=== PATIENT | female | born 1940 | race Caucasian/White ===

== ENCOUNTER 2016-12-29 10:56 | Emergency (ER) | payer OTHER ==
[~2016-12-29] VITALS: Ht 160 cm; Wt 85.0 kg
[2016-12-29 11:09] VITALS: BP 156/122; PULSE 91; RESP 18; TEMP 99.7; O2SAT 98
[2016-12-29] MEDS ORDERED: SERT25TA83 PO (11:50)
[2016-12-29] MEDS ORDERED: METF500T PO (11:50)
[2016-12-29] MEDS ORDERED: [UNRECOGNIZED DRUG - REMARK] (11:50)
[2016-12-29] MEDS ORDERED: CHOLMIS (11:50)
[2016-12-29] MEDS ORDERED: LISI-519 PO (11:50)
[2016-12-29] MEDS ORDERED: BENZ100 PO (11:58)
[2016-12-29] MEDS ORDERED: TYLETAB34 PO (11:58)
--- NOTE | 2016-12-29 12:03 | PD ---
HPI Chief Complaint: Respiratory Symptoms Time Seen by Provider: 11:51 Travel History International Travel<30 days: No Contact w/Intl Traveler<30days: No Traveled to known affect area: No History of Present Illness HPI This patient complains of cough and congestion and sore throat and runny nose. Whenever she coughs she has chest wall discomfort. She has a nebulizer at home. No wheezing. She quit smoking 30 years ago. Symptoms severity is moderate. PFSH Past Medical History Hx Anticoagulant Therapy: Yes (asa 81mg) Cardiovascular Problems: Yes (htn on meds but didnt take this am) COPD: Yes Diabetes: Yes (type 2) Patient Takes Glucophage: Yes Hypertension: Yes Respiratory: Yes (copd) Past Surgical History Surgical History: No Previous Surgery Social History Alcohol Use: No Tobacco Use: No Allergies-Medications (Allergen,Severity, Reaction): Coded Allergies: Penicillin (Verified Allergy, Mild, hives, 12/29/16) Reported Meds & Prescriptions Reported Meds & Active Scripts Active Tylenol-Codeine #3 (Acetaminophen-Codeine) 300-30 mg Tab 1 Tab PO Q6HR PRN Tessalon Perles (Benzonatate) 100 Mg Cap 200 Mg PO TID PRN Reported Metformin (Metformin HCl) 500 Mg Tab 500 Mg PO BIDPC With meals Sertraline (Sertraline HCl) 25 Mg Tab 25 Mg PO DAILY [fibroid] Cholesterol 1 Mis Mis Lisinopril 5 Mg Tab 5 Mg PO DAILY Review of Systems General / Constitutional: No: Fever HENT: No: Headaches Respiratory: Positive: Cough Gastrointestinal: No: Vomiting Physical Exam Narrative RESPIRATORY: Respiratory effort unlabored, no retractions or use of accessory muscles. Breath sounds are clear and symmetric. CARDIOVASCULAR: Regular rate and rhythm without murmur. Extremities showed no edema or varicosities. GASTROINTESTINAL: Abdomen soft, non-tender, nondistended. Positive bowel sounds. No hepato-splenomegaly, or palpable masses. No guarding. SKIN: Inspection shows no rash or ulcers. Palpation shows no induration or nodules. Data Data Last Documented VS Vital Signs Date Time Temp Pulse Resp B/P Pulse Ox O2 Delivery O2 Flow Rate FiO2 12/29/16 11:09 99.7 91 18 156/122 98 MDM Medical Decision Making Medical Screen Exam Complete: Yes Emergency Medical Condition: Yes Medical Record Reviewed: Yes Differential Diagnosis Bronchitis, COPD, pneumonia Narrative Course I have reviewed the patient's electronic medical record. Presentation here is consistent with an acute viral flu-type syndrome. No indication for antibiotics or chest x-ray Lungs are clear and she is not short of breath I prescribed her some Tessalon that she would like to try to suppress cough I wrote her some Tylenol 3 with codeine for her chest wall discomfort This is clearly noncardiac She has a nebulizer at home that she will use as needed Diagnosis Primary Impression: Flu syndrome Additional Instructions: The patient was advised to follow up with their physician and return if they worsen. Med/Other Pt SpecificInfo: Prescription(s) given Scripts Acetaminophen-Codeine (Tylenol-Codeine #3)300-30 mg Tab1 Tab PO Q6HR PRN (PAIN) #15 TAB Ref 0 Prov:Sameer Breen MD 12/29/16 Benzonatate (Tessalon Perles)100 Mg [id number] Mg PO TID PRN (COUGH) #20 CAP Ref 0 Prov:Sameer Breen MD 12/29/16 Disposition: 01 DISCHARGE HOME Condition: Stable Sameer Breen MD Dec 29, 2016 12:03
== END 2016-12-29 12:48 | disposition home or self-care (01) ==
LOC: PHED 10:56
DX: J11.1 Influenza due to unidentified influenza virus with other respiratory manifestations (principal); R05 Cough; R07.0 Pain in throat; R09.89 Other specified symptoms and signs involving the circulatory and respiratory systems; R07.89 Other chest pain; I10 Essential (primary) hypertension; E11.9 Type 2 diabetes mellitus without complications; Z79.82 Long term (current) use of aspirin; Z79.84 Long term (current) use of oral hypoglycemic drugs; Z86.79 Personal history of other diseases of the circulatory system; Z87.09 Personal history of other diseases of the respiratory system
CPT/HCPCS: 99283

== ENCOUNTER 2017-07-26 15:11 | Emergency (ER) | payer OTHER ==
[~2017-07-26] VITALS: Ht 162.6 cm; Wt 87.0 kg
[~2017-07-26 15:11] MED LIST: BENZ100 PO; CHOLMIS; LISI-519 PO; METF500T PO; SERT25TA83 PO; TYLETAB34 PO; [UNRECOGNIZED DRUG - REMARK]
[2017-07-26 15:18] VITALS: BP 171/74; PULSE 62; RESP 17; TEMP 98.2; O2SAT 97
[2017-07-26] MEDS ORDERED: LEVO137T2 PO (15:27)
[2017-07-26] MEDS ORDERED: ATOR20TA15 PO (15:27)
--- NOTE | 2017-07-26 15:29 | PD ---
HPI Chief Complaint: Fall Time Seen by Provider: 15:23 Travel History International Travel<30 days: No Contact w/Intl Traveler<30days: No Traveled to known affect area: No History of Present Illness HPI The patient was seen and examined in the presence of the nurse. This patient was standing on her first step going into her mobile home when she slipped because her shoes were wet. She landed on her left elbow. Complains of pain and decreased movement. Paramedics brought her in. He did not strike her head. No head or neck pain or chest or abdominal or back pain. She is ambulatory since the fall. Severity is moderate. Duration 2 hours. No alleviating factors PFSH Past Medical History Hx Anticoagulant Therapy: Yes (asa 81mg) Cardiovascular Problems: Yes (htn on meds but didnt take this am) COPD: Yes Diabetes: Yes (type 2) Patient Takes Glucophage: Yes (07/26/17 0900) Diminished Hearing: No Hypertension: Yes Respiratory: Yes (copd) ?: Not Past Surgical History Appendectomy: Yes Social History Alcohol Use: No Tobacco Use: No Substance Use: No Allergies-Medications (Allergen,Severity, Reaction): Coded Allergies: penicillin G (Unverified Allergy, Mild, hives, 06/30/17) Reported Meds & Prescriptions Reported Meds & Active Scripts Active Percocet (Oxycodone-Acetaminophen) 5-325 mg Tab 1 Tab PO Q6H PRN Reported Levothyroxine (Levothyroxine Sodium) 137 Mcg Tab 137 Mcg PO DAILY Atorvastatin (Atorvastatin Calcium) 20 Mg Tab 20 Mg PO HS Metformin (Metformin HCl) 500 Mg Tab 500 Mg PO BIDPC With meals Sertraline (Sertraline HCl) 25 Mg Tab 25 Mg PO DAILY [fibroid] Lisinopril 5 Mg Tab 5 Mg PO DAILY Review of Systems General / Constitutional: No: Fever Eyes: No: Visual changes HENT: No: Headaches Cardiovascular: No: Chest Pain or Discomfort Respiratory: No: Shortness of Breath Gastrointestinal: No: Abdominal Pain Genitourinary: No: Dysuria Musculoskeletal: Positive: Arthralgias, Limited ROM, Pain Skin: No Rash Neurologic: No: Weakness Psychiatric: No: Depression Endocrine: No: Polydipsia Hematologic/Lymphatic: No: Easy Bruising Physical Exam Narrative GENERAL: Well-nourished, well-developed patient in no apparent distress. SKIN: Focused skin assessment reveals no rash and nodules. Skin is Warm and dry. HEAD: Atraumatic. Normocephalic. EYES: Pupils equal and round. No scleral icterus. No injection or drainage. ENT: No nasal bleeding or discharge. Mucous membranes pink and moist. NECK: Trachea midline. No JVD. CARDIOVASCULAR: Regular rate and rhythm. No murmur appreciated. RESPIRATORY: No accessory muscle use. Clear to auscultation. Breath sounds equal bilaterally. GASTROINTESTINAL: Abdomen soft, non-tender, nondistended. Hepatic and splenic margins not palpable. MUSCULOSKELETAL: Some deformity at the left elbow joint. There is tenderness there. No open wound. Has normal pulse and sensation and cap refill. No clubbing. No cyanosis. No edema. NEUROLOGICAL: Awake and alert. No obvious cranial nerve deficits. Motor grossly within normal limits. Normal speech. PSYCHIATRIC: Appropriate mood and affect; insight and judgment normal. Data Data Last Documented VS Vital Signs Date Time Temp Pulse Resp B/P (MAP) Pulse Ox O2 Delivery O2 Flow Rate FiO2 07/26/17 15:41 96 Room Air 07/26/17 15:18 98.2 62 17 171/74 (106) Orders Orders Iv Access Insert/Monitor (07/26/17 15:29) Rail Director / Telemetry [email or web address] (07/26/17 15:29) Oxygen Administration (07/26/17 15:29) Oximetry (07/26/17 15:29) Propofol 200 Mg/20 Ml Inj (Diprivan 200 (07/26/17 15:30) Elbow, Limited (Ap&Lat) (07/26/17 ) Elbow, Limited (Ap&Lat) (07/26/17 ) Splint Or Brace Apply/Monitor (07/26/17 16:16) Propofol 200 Mg/20 Ml Inj (Diprivan 200 (07/26/17 17:15) Elbow, Limited (Ap&Lat) (07/26/17 ) MDM Medical Decision Making Medical Screen Exam Complete: Yes Emergency Medical Condition: Yes Medical Record Reviewed: Yes Differential Diagnosis Elbow dislocation, elbow fracture, contusion Narrative Course I have reviewed the patient's electronic medical record. I reviewed her left elbow x-rays. She has a fracture dislocation of the left elbow. Fracture is at the proximal radial head. Procedure note: I discussed the procedure at length with the patient. She signed written consent. We reviewed risks and benefits and alternatives. She has history of COPD and is nebulizer dependent so I was cautious with sedation. I placed her on oximetry and telemetry monitoring and gave HER-2 liters nasal cannula oxygen. She maintained saturations in the 97-98 range throughout the procedure. I gave her 50 mg IV Diprivan which achieved an excellent level of sedation I applied pressure to the back of the left olecranon while also applying distal traction to the forearm. I initially thought that this reduced it. I reviewed the post reduction x-ray which did not show resolution of the dislocation. At this point she was no longer sedated. I gave her a second dose of 50 g IV Diprivan and once again achieved good sedation. I repeated the maneuver applied more pressure to the olecranon and more distal traction to the forearm and this resulted in an audible clunk and change in position and reduction of the dislocation. Posterior long-arm splint was applied. I'm giving her extensive time to let the sedation wore off. She will be under continuous pulse oximetry and telemetry monitoring during this time. Bedside physician time is 20 minutes. I reviewed the second post reduction x-ray which showed good reduction of the dislocation. At this point she is awake and talking and I will continue to monitor for while but it some point in the near future she'll be stable for discharge. I wrote her medication for pain. She's got a sling and a splint and will follow with orthopedist. Diagnosis Primary Impression: Fracture dislocation of left elbow joint Qualified Codes: S42.402A - Unspecified fracture of lower end of left humerus , initial encounter for closed fracture Additional Instructions: Follow-up with orthopedist Wear sling and splint The patient was warned about potential sedation for the medications they will receive on prescription. Med/Other Pt SpecificInfo: Prescription(s) given Scripts Oxycodone-Acetaminophen (Percocet) 5-325 mg Tab 1 TAB PO Q6H Y for PAIN, #20 TAB 0 Refills Prov: Sameer Breen MD 07/26/17 Disposition: 01 DISCHARGE HOME Condition: Stable Sameer Breen MD Jul 26, 2017 15:29
[2017-07-26] MEDS ORDERED: PROPOFOL 200 MG/20 ML AMP IV ONE ×2 (15:30→17:15)
[2017-07-26 15:41] VITALS: O2SAT 96
--- NOTE | 2017-07-26 15:59 | RADRPT ---
EXAM DATE/TIME: 07/26/2017 15:42 [facility] COMPARISON: No previous studies available for comparison. INDICATIONS : Fall, left elbow pain. MEDICAL HISTORY : None. SURGICAL HISTORY : None. ENCOUNTER: Initial ACUITY: 1 day PAIN SCORE: 10/10 LOCATION: Left elbow FINDINGS: Two view examination of the left elbow demonstrates a fracture dislocation of the joint. There is a c ompacted impacted fracture the radial head and a ulnar humeral dislocation. CONCLUSION: Fracture dislocation of the elbow joint which includes compacted comminuted fracture of the radial he ad and ulnar humeral dislocation. Charles Snow MD on July 26, 2017 at 15:57 Board Certified Radiologist. This report was verified electronically.
[2017-07-26] MEDS ORDERED: PERC5TAB12 PO (16:22)
--- NOTE | 2017-07-26 16:51 | RADRPT ---
EXAM DATE/TIME: 07/26/2017 16:40 [facility] COMPARISON: ELBOW LEFT LIMITED (AP & LAT), July 26, 2017, 15:42. INDICATIONS : Post reduction left elbow. MEDICAL HISTORY : None. SURGICAL HISTORY : None. ENCOUNTER: Initial ACUITY: 1 day PAIN SCORE: 10/10 LOCATION: Left Elbow FINDINGS: Two view examination of the left elbow demonstrates persistent ulnohumeral and radiocapitellar disloc ation. Comminuted, impacted fracture of the radial head is again noted. CONCLUSION: Persistent ulnohumeral and radiocapitellar dislocation. Charles Snow MD on July 26, 2017 at 16:48 Board Certified Radiologist. This report was verified electronically.
--- NOTE | 2017-07-26 17:40 | RADRPT ---
EXAM DATE/TIME: 07/26/2017 17:18 [facility] COMPARISON: ELBOW LEFT LIMITED (AP & LAT), July 26, 2017, 16:40. INDICATIONS : Post reduction of left elbow. MEDICAL HISTORY : None. SURGICAL HISTORY : None. ENCOUNTER: Subsequent ACUITY: 1 day PAIN SCORE: 3/10 LOCATION: Left Elbow FINDINGS: Two view examination of the left elbow demonstrates satisfactory reduction of dislocated ulnohumeral and radiocapitellar joints. Fracture radial head is again noted. Posterior splint has been applied. CONCLUSION: Satisfactory reduction of dislocated left elbow. Fractured left radial head. Charles Snow MD on July 26, 2017 at 17:38 Board Certified Radiologist. This report was verified electronically.
[2017-07-26 17:52] VITALS: BP 134/82
== END 2017-07-26 18:06 | disposition home or self-care (01) ==
LOC: NEPD 15:11
DX: S42.402A Unspecified fracture of lower end of left humerus, initial encounter for closed fracture (principal); S53.105A Unspecified dislocation of left ulnohumeral joint, initial encounter; W01.0XXA Fall on same level from slipping, tripping and stumbling without subsequent striking against object, initial encounter; Y93.89 Activity, other specified; Y92.028 Other place in mobile home as the place of occurrence of the external cause
CPT/HCPCS: 24600; 29105; 73070; 99152